=== PATIENT | female | born 1970 | race Caucasian/White ===

== ENCOUNTER 2017-06-15 14:30 | Emergency (ER) | payer MEDICAID ==
[~2017-06-15] VITALS: Ht 170.2 cm; Wt 83.2 kg
[2017-06-15 15:16] LABS: BASO # 0.1 (0.02-0.10); EOS # 0.2 (0.04-0.40); EOS % 2.9 % (1.0-5.0); HEMATOCRIT 42.5 % (37.0-47.0); HEMOGLOBIN 14.1 g/dL (12.5-16.0); LYMPH# 2.7 (1.50-4.00); MEAN CELL VOLUME 92 fl (78-100); MEAN CORPUSCULAR HEMOGLOBIN 31 pg (27-31); MEAN CORPUSCULAR HGB CONC 33 g/dL (33-37); MEAN PLATELET VOLUME 10.4 fl (7.4-10.4); MONO # 0.7 (0.20-0.80); NEU # 3.2 (1.40-6.50); PLATELET COUNT 225 K/mm3 (130-400); RED BLOOD COUNT 4.63 M/mm3 (4.10-5.30); RED CELL DISTRIBUTION WIDTH 12.3 % (11.5-14.5); WHITE BLOOD COUNT 6.9 K/mm3 (4.8-10.8)
[2017-06-15 15:20] LABS: BUN/CREATININE RATIO 23.2 (6.0-26.0); CALCIUM 9.6 mg/dL (8.4-10.2); POTASSIUM 4.1 mmol/L (3.6-5.0); TOTAL BILIRUBIN 0.8 mg/dL (0.2-1.3); TOTAL PROTEIN 7.1 g/dL (6.3-8.2)
[2017-06-15 16:33] LABS: URINE APPEARANCE CLOUDY; URINE BILIRUBIN NEGATIVE (NEGATIVE); URINE BLOOD 50 ery/uL (NEGATIVE); URINE COLOR YELLOW; URINE GLUCOSE NEGATIVE (NEGATIVE); URINE KETONE NEGATIVE (NEGATIVE); URINE LEUKOCYTE ESTERASE 1+ (NEGATIVE); URINE MUCUS PRESENT (NOT PRESENT); URINE NITRATE NEGATIVE (NEGATIVE); URINE PROTEIN(semi-quant) NEGATIVE (NEGATIVE); URINE UROBILINOGEN NORMAL (NORMAL); URINE WBC 16-30 /hpf (0-3)
[2017-06-15] MEDS ORDERED: LORAZEPAM0.5 M1 PO (19:46)
[2017-06-15 20:01] VITALS: BP 113/77
== END 2017-06-15 20:00 | disposition home or self-care (01) ==
LOC: ED 14:30
PROVIDERS: Family Medicine
DX: M94.0 Chondrocostal junction syndrome [Tietze] (principal); F41.9 Anxiety disorder, unspecified; F15.11 Other stimulant abuse, in remission; F17.200 Nicotine dependence, unspecified, uncomplicated
CPT/HCPCS: J2270

== ENCOUNTER 2019-02-27 19:10 | Emergency (ER) | payer MEDICAID ==
[~2019-02-27 19:10] MED LIST: LORAZEPAM0.5 M1 PO; PREDNISONE10 MG PO
[2019-02-27] MEDS ORDERED: AZITHROMYCIN 250MGPK PO (19:43)
[2019-02-27] MEDS ORDERED: PROAIR HFA0.09 MG/AC IH (19:43)
[2019-02-27] MEDS ORDERED: PREDNISONE20 M1 PO (19:43)
[2019-02-27 19:51] VITALS: BP 134/90
== END 2019-02-27 19:52 | disposition home or self-care (01) ==
LOC: ED 19:10
DX: J40 Bronchitis, not specified as acute or chronic (principal); F17.210 Nicotine dependence, cigarettes, uncomplicated; F12.90 Cannabis use, unspecified, uncomplicated
CPT/HCPCS: J7512

== ENCOUNTER → 2019-04-20 | Outpatient (CLI) | payer MEDICAID ==
[~2019-04-20] MED LIST changes: +AZITHROMYCIN 250MGPK PO; +PREDNISONE20 M1 PO; +PROAIR HFA0.09 MG/AC IH
== END ==
LOC: RAD 15:43
DX: M25.512 Pain in left shoulder (principal)

== ENCOUNTER → 2019-05-04 | Outpatient (CLI) | payer MEDICAID ==
[2019-05-04 10:16] LABS: EOS # 0.2 (0.04-0.40); EOS % 4.6 % (1.0-5.0); HEMATOCRIT 41.8 % (37.0-47.0); HEMOGLOBIN 13.4 g/dL (12.5-16.0); LYMPH# 1.9 (1.50-4.00); MEAN CELL VOLUME 94 fl (78-100); MEAN CORPUSCULAR HEMOGLOBIN 30 pg (27-31); MEAN CORPUSCULAR HGB CONC 32 g/dL (33-37); MONO # 0.4 (0.20-0.80); NEU # 2.7 (1.40-6.50); PLATELET COUNT 247 K/mm3 (130-400); RED BLOOD COUNT 4.47 M/mm3 (4.10-5.30); RED CELL DISTRIBUTION WIDTH 12.5 % (11.5-14.5); WHITE BLOOD COUNT 5.2 K/mm3 (4.8-10.8)
[2019-05-04 10:17] LABS: ALBUMIN 3.9 g/dL (3.5-5.0); POTASSIUM 4.8 mmol/L (3.5-5.1)
[2019-05-04 10:18] LABS: CALCIUM 9.4 mg/dL (8.3-10.5)
[2019-05-04 10:19] LABS: TOTAL PROTEIN 7.2 g/dL (6.4-8.3)
[2019-05-04 10:21] LABS: TOTAL BILIRUBIN 0.6 mg/dL (0.2-1.2)
[2019-05-04 11:19] LABS: ERYTHROCYTE SEDIMENTATION RATE 11 mm/hr (0-20)
[2019-05-05 13:47] LABS: ANA SCREEN with REFLEX Negative (Negative)
== END ==
LOC: LAB 09:54
PROVIDERS: Physician Assistant
DX: Z13.1 Encounter for screening for diabetes mellitus (principal); Z13.220 Encounter for screening for lipoid disorders; Z13.828 Encounter for screening for other musculoskeletal disorder; Z76.89 Persons encountering health services in other specified circumstances; M19.90 Unspecified osteoarthritis, unspecified site; G43.909 Migraine, unspecified, not intractable, without status migrainosus; B19.20 Unspecified viral hepatitis C without hepatic coma; M25.512 Pain in left shoulder; E66.9 Obesity, unspecified; M25.50 Pain in unspecified joint

== ENCOUNTER 2019-05-24 10:00 | Outpatient (RCR) | payer MEDICAID | END 2019-05-24 10:30 | disposition still patient (30) | LOC: PT 10:00 | DX: M25.512 Pain in left shoulder (principal); M25.511 Pain in right shoulder ==

== ENCOUNTER 2019-08-04 22:21 | Emergency (ER) | payer MEDICAID ==
[2019-08-04] MEDS ORDERED: ZITHROMAX 250M250 MG PO (23:45)
[2019-08-04] MEDS ORDERED: PREDNISONE20 M1 PO (23:45)
[2019-08-05 00:30] VITALS: BP 114/67
== END 2019-08-05 00:30 | disposition home or self-care (01) ==
LOC: ED 22:21
DX: J40 Bronchitis, not specified as acute or chronic (principal); R07.81 Pleurodynia; F32.9 Major depressive disorder, single episode, unspecified; F17.210 Nicotine dependence, cigarettes, uncomplicated; Z88.8 Allergy status to other drugs, medicaments and biological substances
CPT/HCPCS: J7512

== ENCOUNTER → 2019-09-08 | Outpatient (CLI) | payer MEDICAID ==
[~2019-09-08] MED LIST changes: +ZITHROMAX 250M250 MG PO
== END ==
LOC: RAD 09:48
DX: S89.92XA Unspecified injury of left lower leg, initial encounter (principal)

== ENCOUNTER 2019-09-24 01:43 | Emergency (ER) | payer MEDICAID ==
[2019-09-24] MEDS ORDERED: AUGMENTIN 875-1 EAC1 PO (02:34)
[2019-09-24 02:42] VITALS: BP 129/95
== END 2019-09-24 02:42 | disposition home or self-care (01) ==
LOC: ED 01:43
DX: K02.9 Dental caries, unspecified (principal); K03.81 Cracked tooth; I10 Essential (primary) hypertension; B19.20 Unspecified viral hepatitis C without hepatic coma; F17.210 Nicotine dependence, cigarettes, uncomplicated
CPT/HCPCS: J1885

== ENCOUNTER → 2019-12-28 | Outpatient (CLI) | payer MEDICAID ==
[~2019-12-28] MED LIST changes: +AUGMENTIN 875-1 EAC1 PO
[2019-12-28 11:44] LABS: EOS # 0.2 (0.04-0.40); EOS % 3.2 % (1.0-5.0); HEMATOCRIT 42.8 % (37.0-47.0); HEMOGLOBIN 14.2 g/dL (12.5-16.0); LYMPH# 2.1 (1.50-4.00); MEAN CELL VOLUME 93 fl (78-100); MEAN CORPUSCULAR HEMOGLOBIN 31 pg (27-31); MEAN CORPUSCULAR HGB CONC 33 g/dL (33-37); MEAN PLATELET VOLUME 10.1 fl (7.4-10.4); MONO # 0.5 (0.20-0.80); NEU # 3.4 (1.40-6.50); PLATELET COUNT 243 K/mm3 (130-400); RED BLOOD COUNT 4.59 M/mm3 (4.10-5.30); RED CELL DISTRIBUTION WIDTH 12.7 % (11.5-14.5); WHITE BLOOD COUNT 6.2 K/mm3 (4.8-10.8)
[2019-12-28 11:54] LABS: ALBUMIN 4.1 g/dL (3.5-5.0); POTASSIUM 4.5 mmol/L (3.5-5.1)
[2019-12-28 11:55] LABS: CALCIUM 9.2 mg/dL (8.3-10.5)
[2019-12-28 11:56] LABS: TOTAL PROTEIN 6.9 g/dL (6.4-8.3)
[2019-12-28 11:58] LABS: TOTAL BILIRUBIN 0.5 mg/dL (0.2-1.2)
[2019-12-29 04:04] LABS: HEPATITIS C ANTIBODY Reactive (Negative)
== END ==
LOC: LAB 11:19
PROVIDERS: Physician Assistant
DX: K21.9 Gastro-esophageal reflux disease without esophagitis (principal); Z86.19 Personal history of other infectious and parasitic diseases

== ENCOUNTER → 2020-02-14 | Outpatient (CLI) | payer MEDICAID ==
[2020-02-14 13:20] LABS: EOS # 0.2 (0.04-0.40); EOS % 2.5 % (1.0-5.0); HEMATOCRIT 42.5 % (37.0-47.0); LYMPH# 2.1 (1.50-4.00); MEAN CELL VOLUME 92 fl (78-100); MEAN CORPUSCULAR HEMOGLOBIN 30 pg (27-31); MEAN CORPUSCULAR HGB CONC 33 g/dL (33-37); MONO # 0.4 (0.20-0.80); NEU # 3.7 (1.40-6.50); PLATELET COUNT 226 K/mm3 (130-400); RED CELL DISTRIBUTION WIDTH 12.6 % (11.5-14.5)
[2020-02-14 13:32] LABS: POTASSIUM 4.6 mmol/L (3.5-5.1)
[2020-02-14 13:36] LABS: TOTAL BILIRUBIN 0.6 mg/dL (0.2-1.2)
[2020-02-14 13:39] LABS: PROTHROMBIN TIME 9.8 SECONDS (9.0-12.0)
== END ==
LOC: LAB 13:00
PROVIDERS: Physician Assistant
DX: B18.2 Chronic viral hepatitis C (principal)

== ENCOUNTER → 2020-02-15 | Outpatient (CLI) | payer MEDICAID | LOC: RAD 07:17 | DX: B18.2 Chronic viral hepatitis C (principal); K76.0 Fatty (change of) liver, not elsewhere classified; K82.0 Obstruction of gallbladder ==

== ENCOUNTER → 2020-04-04 | Outpatient (CLI) | payer MEDICAID ==
[2020-04-04 11:41] LABS: BASO # 0.1 (0.02-0.10); EOS # 0.2 (0.04-0.40); EOS % 3.3 % (1.0-5.0); HEMATOCRIT 43.8 % (37.0-47.0); HEMOGLOBIN 14.7 g/dL (12.5-16.0); LYMPH# 2.3 (1.50-4.00); MEAN CELL VOLUME 92 fl (78-100); MEAN CORPUSCULAR HEMOGLOBIN 31 pg (27-31); MEAN CORPUSCULAR HGB CONC 34 g/dL (33-37); MEAN PLATELET VOLUME 10.4 fl (7.4-10.4); MONO # 0.4 (0.20-0.80); NEU # 3.1 (1.40-6.50); PLATELET COUNT 240 K/mm3 (130-400); RED BLOOD COUNT 4.77 M/mm3 (4.10-5.30); RED CELL DISTRIBUTION WIDTH 12.7 % (11.5-14.5)
[2020-04-04 11:54] LABS: ALBUMIN 4.1 g/dL (3.5-5.0); POTASSIUM 4.1 mmol/L (3.5-5.1)
[2020-04-04 11:55] LABS: CALCIUM 9.5 mg/dL (8.3-10.5)
[2020-04-04 11:58] LABS: TOTAL BILIRUBIN 0.8 mg/dL (0.2-1.2)
== END ==
LOC: LAB 10:50
PROVIDERS: Family Medicine
DX: R51 Headache (principal); R19.7 Diarrhea, unspecified

== ENCOUNTER → 2020-04-20 | Outpatient (CLI) | payer MEDICAID | LOC: LAB 11:41 | DX: Z01.419 Encounter for gynecological examination (general) (routine) without abnormal findings (principal); Z12.31 Encounter for screening mammogram for malignant neoplasm of breast; N89.8 Other specified noninflammatory disorders of vagina ==

== ENCOUNTER → 2020-05-02 | Outpatient (CLI) | payer MEDICAID | LOC: MAMMO 11:30 | DX: Z12.31 Encounter for screening mammogram for malignant neoplasm of breast (principal) ==

== ENCOUNTER → 2020-05-17 | Outpatient (CLI) | payer MEDICAID | LOC: LAB 08:26 | DX: B18.2 Chronic viral hepatitis C (principal) ==

== ENCOUNTER → 2020-05-25 | Outpatient (CLI) | payer MEDICAID ==
[2020-05-25 16:55] LABS: BASO # 0.1 (0.02-0.10); EOS # 0.2 (0.04-0.40); EOS % 2.8 % (1.0-5.0); HEMOGLOBIN 13.7 g/dL (12.5-16.0); MEAN CELL VOLUME 92 fl (78-100); MEAN CORPUSCULAR HEMOGLOBIN 31 pg (27-31); MEAN CORPUSCULAR HGB CONC 33 g/dL (33-37); MEAN PLATELET VOLUME 10.4 fl (7.4-10.4); MONO # 0.6 (0.20-0.80); NEU # 4.5 (1.40-6.50); PLATELET COUNT 218 K/mm3 (130-400); RED BLOOD COUNT 4.46 M/mm3 (4.10-5.30); RED CELL DISTRIBUTION WIDTH 12.7 % (11.5-14.5); WHITE BLOOD COUNT 8.4 K/mm3 (4.8-10.8)
[2020-05-25 17:07] LABS: POTASSIUM 4.5 mmol/L (3.5-5.1)
[2020-05-25 17:08] LABS: CALCIUM 9.3 mg/dL (8.3-10.5)
[2020-05-25 17:10] LABS: TOTAL PROTEIN 6.9 g/dL (6.4-8.3)
[2020-05-25 17:11] LABS: TOTAL BILIRUBIN 0.3 mg/dL (0.2-1.2)
[2020-05-25 17:12] LABS: D-DIMER 0.72 mg/L FEU (0.15-0.50)
== END ==
LOC: LAB 16:35
PROVIDERS: Physician Assistant
DX: S89.92XA Unspecified injury of left lower leg, initial encounter (principal); R42 Dizziness and giddiness

== ENCOUNTER → 2020-05-26 | Outpatient (CLI) | payer MEDICAID | LOC: RAD 10:34 | DX: R60.0 Localized edema (principal) ==

== ENCOUNTER → 2020-07-08 | Outpatient (CLI) | payer MEDICAID | LOC: RAD 10:27 → LAB 10:27 | DX: I49.8 Other specified cardiac arrhythmias (principal) ==

== ENCOUNTER → 2020-07-08 | Outpatient (CLI) | payer MEDICAID ==
[2020-07-08 11:27] LABS: HEMATOCRIT 44.4 % (37.0-47.0); HEMOGLOBIN 14.5 g/dL (12.5-16.0); RED BLOOD COUNT 4.69 M/mm3 (4.10-5.30); RED CELL DISTRIBUTION WIDTH 13.2 % (11.5-14.5); WHITE BLOOD COUNT 6.9 K/mm3 (4.8-10.8)
[2020-07-08 11:36] LABS: POTASSIUM 4.7 mmol/L (3.5-5.1); SODIUM 138 mmol/L (136-145)
[2020-07-08 11:37] LABS: CALCIUM 8.9 mg/dL (8.3-10.5)
[2020-07-08 11:38] LABS: GLUCOSE 105 mg/dL (65-105)
[2020-07-08 11:39] LABS: CARBON DIOXIDE 20 mmol/L (22-29)
[2020-07-08 11:50] LABS: TROPONIN-I < 0.03 ng/mL (<0.030)
== END ==
LOC: EDSTATUS 10:20 → ED 11:02 → RAD 11:30
PROVIDERS: Physician Assistant
DX: R07.81 Pleurodynia (principal); R07.89 Other chest pain

== ENCOUNTER → 2020-08-22 | Outpatient (CLI) | payer MEDICAID | LOC: LAB 10:24 | DX: B18.2 Chronic viral hepatitis C (principal); R74.8 Abnormal levels of other serum enzymes; R53.83 Other fatigue ==

== ENCOUNTER → 2021-02-12 | Outpatient (CLI) | payer MEDICAID ==
[~2021-02-12] MED LIST changes: +BACLOFEN10 M1 PO; +CELEBREX50 MG; +FLONASE ALLERG9.9 ML NS
== END ==
LOC: LAB 16:02
DX: B34.9 Viral infection, unspecified (principal); Z20.822 Contact with and (suspected) exposure to COVID-19

== ENCOUNTER → 2021-03-08 | Outpatient (CLI) | payer MEDICAID | LOC: LAB 16:37 | DX: N39.0 Urinary tract infection, site not specified (principal) ==

== ENCOUNTER → 2021-03-14 | Outpatient (CLI) | payer MEDICAID ==
[2021-03-14 15:37] LABS: BASO # 0.05 (0.02-0.10); EOS % 1.4 % (1.0-5.0); HEMATOCRIT 42.7 % (37.0-47.0); HEMOGLOBIN 13.9 g/dL (12.5-16.0); LYMPH# 2.57 (1.50-4.00); MEAN CELL VOLUME 94 fl (78-100); MEAN CORPUSCULAR HEMOGLOBIN 31 pg (27-31); MEAN CORPUSCULAR HGB CONC 33 g/dL (33-37); MEAN PLATELET VOLUME 9.9 fl (7.4-10.4); MONO # 0.63 (0.20-0.80); NEU # 4.02 (1.40-6.50); PLATELET COUNT 249 K/mm3 (130-400); RED BLOOD COUNT 4.54 M/mm3 (4.10-5.30); RED CELL DISTRIBUTION WIDTH 11.8 % (11.5-14.5); WHITE BLOOD COUNT 7.4 K/mm3 (4.8-10.8)
[2021-03-14 15:59] LABS: ALBUMIN 3.8 g/dL (3.5-5.0); POTASSIUM 4.3 mmol/L (3.5-5.1)
[2021-03-14 16:00] LABS: CALCIUM 9.8 mg/dL (8.3-10.5)
[2021-03-14 16:01] LABS: TOTAL PROTEIN 6.8 g/dL (6.4-8.3)
[2021-03-14 16:03] LABS: TOTAL BILIRUBIN 0.4 mg/dL (0.2-1.2)
[2021-03-14 23:32] LABS: FOLLICLE STIMULATING HORMONE 9.1 mIU/mL (()); LUTENIZING HORMONE 11.6 mIU/mL (()); PROGESTERONE 0.5 ng/mL (()); PROLACTIN AMS 14.4 ng/mL (5.2-26.5)
== END ==
LOC: LAB 15:23
PROVIDERS: Physician Assistant
DX: R68.82 Decreased libido (principal); E78.5 Hyperlipidemia, unspecified; Z83.79 Family history of other diseases of the digestive system

== ENCOUNTER 2021-04-07 10:52 | Emergency (ER) | payer MEDICAID ==
[~2021-04-07 10:52] MED LIST changes: -BACLOFEN10 M1 PO; -CELEBREX50 MG; -FLONASE ALLERG9.9 ML NS
[2021-04-07] MEDS ORDERED: BACLOFEN10 M1 PO (11:09)
[2021-04-07] MEDS ORDERED: FLONASE ALLERG9.9 ML NS (11:10)
[2021-04-07] MEDS ORDERED: CELEBREX50 MG (11:10)
[2021-04-07 11:53] LABS: BASO # 0.03 (0.02-0.10); EOS # 0.06 (0.04-0.40); EOS % 0.9 % (1.0-5.0); HEMATOCRIT 41.8 % (37.0-47.0); HEMOGLOBIN 13.5 g/dL (12.5-16.0); LYMPH# 2.14 (1.50-4.00); MEAN CELL VOLUME 96 fl (78-100); MEAN CORPUSCULAR HEMOGLOBIN 31 pg (27-31); MEAN CORPUSCULAR HGB CONC 32 g/dL (33-37); MEAN PLATELET VOLUME 10.5 fl (7.4-10.4); MONO # 0.37 (0.20-0.80); NEU # 4.06 (1.40-6.50); PLATELET COUNT 226 K/mm3 (130-400); RED BLOOD COUNT 4.35 M/mm3 (4.10-5.30); RED CELL DISTRIBUTION WIDTH 12.1 % (11.5-14.5); WHITE BLOOD COUNT 6.7 K/mm3 (4.8-10.8)
[2021-04-07 12:02] LABS: URINE APPEARANCE HAZY; URINE BILIRUBIN NEGATIVE (NEGATIVE); URINE BLOOD NEGATIVE (NEGATIVE); URINE COLOR YELLOW; URINE GLUCOSE NEGATIVE (NEGATIVE); URINE KETONE NEGATIVE (NEGATIVE); URINE LEUKOCYTE ESTERASE NEGATIVE (NEGATIVE); URINE NITRATE NEGATIVE (NEGATIVE); URINE PROTEIN(semi-quant) NEGATIVE (NEGATIVE); URINE UROBILINOGEN NORMAL (NORMAL); URINE WBC 0-1 /hpf (0-3)
[2021-04-07 12:03] LABS: URINE MUCUS PRESENT (NOT PRESENT)
[2021-04-07 12:56] VITALS: BP 121/76
== END 2021-04-07 12:57 | disposition home or self-care (01) ==
LOC: ED 10:52
PROVIDERS: Family Medicine
DX: R07.1 Chest pain on breathing (principal)

== ENCOUNTER → 2021-06-08 | Outpatient (CLI) | payer MEDICAID ==
[~2021-06-08] MED LIST changes: +BACLOFEN10 M1 PO; +CELEBREX50 MG; +FLONASE ALLERG9.9 ML NS
== END ==
LOC: LAB 09:41
DX: Z20.822 Contact with and (suspected) exposure to COVID-19 (principal)

== ENCOUNTER → 2021-11-13 | Outpatient (CLI) | payer MEDICAID ==
[2021-11-13 17:27] LABS: BASO # 0.04 K/mm3 (0.02-0.10); EOS # 0.09 K/mm3 (0.04-0.40); EOS % 1.3 % (1.0-5.0); HEMATOCRIT 40.6 % (37.0-47.0); HEMOGLOBIN 13.3 g/dL (12.5-16.0); LYMPH# 3.57 K/mm3 (1.50-4.00); MEAN CELL VOLUME 93 fl (78-100); MEAN CORPUSCULAR HEMOGLOBIN 31 pg (27-31); MEAN CORPUSCULAR HGB CONC 33 g/dL (33-37); MEAN PLATELET VOLUME 10.7 fl (7.4-10.4); MONO # 0.44 K/mm3 (0.20-0.80); NEU # 3.02 K/mm3 (1.40-6.50); PLATELET COUNT 230 K/mm3 (130-400); RED BLOOD COUNT 4.35 M/mm3 (4.10-5.30); RED CELL DISTRIBUTION WIDTH 11.8 % (11.5-14.5); WHITE BLOOD COUNT 7.2 K/mm3 (4.8-10.8)
[2021-11-13 17:34] LABS: ALBUMIN 4.3 g/dL (3.5-5.0)
[2021-11-13 17:35] LABS: POTASSIUM 3.8 mmol/L (3.5-5.1)
[2021-11-13 17:36] LABS: CALCIUM 9.6 mg/dL (8.3-10.5)
[2021-11-13 17:37] LABS: TOTAL PROTEIN 7.3 g/dL (6.4-8.3)
[2021-11-13 17:39] LABS: TOTAL BILIRUBIN 0.4 mg/dL (0.2-1.2)
[2021-11-14 20:39] LABS: FOLLICLE STIMULATING HORMONE 17.6 mIU/mL (()); LUTENIZING HORMONE 5.3 mIU/mL (()); PROGESTERONE 0.2 ng/mL (()); TESTOSTERONE 18 ng/dL (14-53)
[2021-11-14 22:06] LABS: HEPATITIS C ANTIBODY Reactive (Negative)
== END ==
LOC: LAB 16:41
PROVIDERS: Physician Assistant
DX: J30.2 Other seasonal allergic rhinitis (principal); R63.4 Abnormal weight loss; R42 Dizziness and giddiness; R68.82 Decreased libido; Z86.19 Personal history of other infectious and parasitic diseases

== ENCOUNTER → 2021-11-14 | Outpatient (CLI) | payer MEDICAID | LOC: LAB 14:22 | DX: R63.4 Abnormal weight loss (principal); R42 Dizziness and giddiness; R68.82 Decreased libido; Z86.19 Personal history of other infectious and parasitic diseases ==

== ENCOUNTER → 2021-11-28 | Outpatient (CLI) | payer MEDICAID | LOC: LAB 13:44 | DX: B19.20 Unspecified viral hepatitis C without hepatic coma (principal) ==

== ENCOUNTER → 2021-12-19 | Outpatient (CLI) | payer MEDICAID | LOC: LAB 14:27 | DX: G47.10 Hypersomnia, unspecified (principal); F41.8 Other specified anxiety disorders; K90.9 Intestinal malabsorption, unspecified; H57.11 Ocular pain, right eye; R51.9 Headache, unspecified; R53.83 Other fatigue; R42 Dizziness and giddiness; Z73.0 Burn-out ==

== ENCOUNTER → 2022-01-31 | Outpatient (CLI) | payer MEDICAID | LOC: RAD 16:24 | DX: R51.9 Headache, unspecified (principal); R53.83 Other fatigue; R42 Dizziness and giddiness ==

== ENCOUNTER 2024-03-02 12:23 | Emergency (ER) | payer OTHER ==
[~2024-03-02] VITALS: Ht 170.2 cm; Wt 83.2 kg
[~2024-03-02 12:23] MED LIST changes: +CYCLOBENZAPRINE10 M1 PO; +CYMBALTA60 M1 PO; +KETOROLAC10 MG PO; +ZANAFLEX4 M1 PO
[2024-03-02] MEDS ORDERED: NS 1,000 ML IV SCH (13:15)
[2024-03-02] MEDS ORDERED: LORazepam 2 MG/ML VIAL IV ONE (13:15)
[2024-03-02 13:23] LABS: BASO # 0.02 K/mm3 (0.02-0.10); EOS # 0.05 K/mm3 (0.04-0.40); EOS % 0.7 % (1.0-5.0); HEMATOCRIT 42.9 % (37.0-47.0); HEMOGLOBIN 13.9 g/dL (12.5-16.0); LYMPH# 1.93 K/mm3 (1.50-4.00); MEAN CELL VOLUME 95 fl (78-100); MEAN CORPUSCULAR HEMOGLOBIN 31 pg (27-31); MEAN CORPUSCULAR HGB CONC 32 g/dL (33-37); MEAN PLATELET VOLUME 10.2 fl (7.4-10.4); MONO # 0.37 K/mm3 (0.20-0.80); NEU # 4.56 K/mm3 (1.40-6.50); PLATELET COUNT 235 K/mm3 (130-400); RED BLOOD COUNT 4.51 M/mm3 (4.10-5.30); RED CELL DISTRIBUTION WIDTH 14.3 % (11.5-14.5); WHITE BLOOD COUNT 6.9 K/mm3 (4.8-10.8)
[2024-03-02 13:28] LABS: ALBUMIN 4.3 g/dL (3.5-5.0)
[2024-03-02 13:29] LABS: SODIUM 141 mmol/L (136-145)
[2024-03-02 13:30] LABS: CALCIUM 9.5 mg/dL (8.3-10.5)
[2024-03-02 13:31] LABS: GLUCOSE 95 mg/dL (65-105)
[2024-03-02 13:32] LABS: CARBON DIOXIDE 20 mmol/L (22-29)
[2024-03-02 13:33] LABS: TOTAL BILIRUBIN 0.6 mg/dL (0.2-1.2)
[2024-03-02 13:36] LABS: AST-SGOT 13 U/L (5-34)
[2024-03-02 13:37] LABS: ALT/SGPT 12 U/L (0-55)
[2024-03-02 13:40] LABS: D-DIMER 0.52 mg/L FEU (0.15-0.50)
[2024-03-02 13:46] LABS: TROPONIN-I < 0.030 ng/mL (0.00-0.033)
[2024-03-02] MEDS ORDERED: Iohexol 350 - 100 ML VIAL IV ONE (14:07)
[2024-03-02 15:36] VITALS: BP 126/85
== END 2024-03-02 15:39 | disposition home or self-care (01) ==
LOC: ED 12:23
PROVIDERS: Physician Assistant
DX: G43.909 Migraine, unspecified, not intractable, without status migrainosus (principal); F41.9 Anxiety disorder, unspecified; Z79.899 Other long term (current) drug therapy; Z91.040 Latex allergy status
CPT/HCPCS: J2060; J7030; Q9967